=== PATIENT | female | born 1960 | race Caucasian/White ===

== ENCOUNTER → 2016-07-12 | Outpatient (CLI) | payer OTHER | LOC: RAD 14:08 | PROVIDERS: ATTEND Family Medicine | DX: G44.59 Other complicated headache syndrome (principal); D37.030 Neoplasm of uncertain behavior of the parotid salivary glands | CPT/HCPCS: 70470; 70491 ==

== ENCOUNTER 2017-02-24 11:03 | Emergency (ER) | payer OTHER ==
--- NOTE | 2017-02-24 12:07 | ER Document Report ---
ED General - General Chief Complaint: Overdose Stated Complaint: POSSIBLE OVERDOSE Time Seen by Provider: 02/24/17 11:22 Mode of Arrival: Ambulatory Information source: Patient Notes: 56-year-old female presents with complaints of self-harm gesture. Patient states she took at least 5 300 mg gabapentin's this morning. She denies any symptoms at this time however. pt states she wants away out of this life. Significant other has been with her for 14 years denies any history of depression or suicidal ideation the patient herself refuses to answer this question TRAVEL OUTSIDE OF THE [place] IN LAST 30 DAYS: No - HPI Onset: Just prior to arrival Onset/Duration: Sudden Quality of pain: No pain Severity: Mild Pain Level: Denies Associated symptoms: None Exacerbated by: Denies Relieved by: Denies Similar symptoms previously: No Recently seen / treated by doctor: No - Related Data Allergies/Adverse Reactions: codeine [Codeine] Allergy (Verified 02/24/17 11:53) ibuprofen [From Motrin] Allergy (Verified 02/24/17 11:53) Past Medical History - Social History Smoking Status: Current Every Day Smoker Cigarette use (# per day): Yes Chew tobacco use (# tins/day): No Smoking Education Provided: No Family History: None Patient has suicidal ideation: No - Unclear, patient states no one pays her attention - Past Medical History Cardiac Medical History: Denies: Hx Heart Attack, Hx Hypertension Pulmonary Medical History: Denies: Hx Asthma Neurological Medical History: Denies: Hx Cerebrovascular Accident, Hx Seizures Endocrine Medical History: Reports: Hx Hypothyroidism Renal/ Medical History: Denies: Hx Kidney Stones, Hx Ovarian Cysts, Hx Pelvic Inflammatory Disease GI Medical History: Denies: Hx Hepatitis, Hx Hiatal Hernia, Hx Ulcer Musculoskeltal Medical History: Reports Hx Arthritis - low back Infectious Medical History: Denies: Hx Hepatitis Past Surgical History: Reports: Hx Orthopedic Surgery, Hx Tubal Ligation. Denies: Hx Mastectomy, Hx Open Heart Surgery, Hx Pacemaker - Immunizations Hx Diphtheria, Pertussis, Tetanus Vaccination: Yes Review of Systems - Review of Systems Notes: REVIEW OF SYSTEMS: CONSTITUTIONAL : Denies fever, chills, or sweats. Denies recent illness. EENT: Denies eye, ear, throat, or mouth pain or symptoms. Denies nasal or sinus congestion or discharge. Denies throat, tongue, or mouth swelling or difficulty swallowing. CARDIOVASCULAR: Denies chest pain. Denies palpitations or racing or irregular heart beat. Denies ankle edema. RESPIRATORY: Denies cough, cold, or chest congestion. Denies shortness of breath, difficulty breathing, or wheezing. GASTROINTESTINAL: Denies abdominal pain or distention. Denies nausea, vomiting , or diarrhea. Denies blood in vomitus, stools, or per rectum. Denies black, tarry stools. Denies constipation. GENITOURINARY: Denies difficulty urinating, painful urination, burning, frequency, blood in urine, or discharge. FEMALE GENITOURINARY: Denies vaginal bleeding, heavy or abnormal periods, irregular periods. Denies vaginal discharge or odor. MUSCULOSKELETAL: Denies back or neck pain or stiffness. Denies joint pain or swelling. SKIN: Denies rash, lesions or sores. HEMATOLOGIC : Denies easy bruising or bleeding. LYMPHATIC: Denies swollen, enlarged glands. NEUROLOGICAL: Denies confusion or altered mental status. Denies passing out or loss of consciousness. Denies dizziness or lightheadedness. Denies headache. Denies weakness or paralysis or loss of use of either side. Denies problems with gait or speech. Denies sensory loss, numbness, or tingling. Denies seizures. PSYCHIATRIC: Refuses to admit to depression or suicidal ideations ALL OTHER SYSTEMS REVIEWED AND NEGATIVE. PHYSICAL EXAMINATION: GENERAL: Well-appearing, well-nourished and in no acute distress. HEAD: Atraumatic, normocephalic. EYES: Pupils equal round and reactive to light, extraocular movements intact, conjunctiva are normal. ENT: Nares patent, oropharynx clear without exudates. Moist mucous membranes. NECK: Normal range of motion, supple without lymphadenopathy LUNGS: Breath sounds clear to auscultation bilaterally and equal. No wheezes rales or rhonchi. HEART: Regular rate and rhythm without murmurs ABDOMEN: Soft, nontender, nondistended abdomen. No guarding, no rebound. No masses appreciated. Female : deferred Musculoskeletal: Normal range of motion, no pitting or edema. No cyanosis. NEUROLOGICAL: Cranial nerves grossly intact. Normal speech, normal gait. Normal sensory, motor exams PSYCH: Flat affect SKIN: Warm, Dry, normal turgor, no rashes or lesions noted. Dictation was performed using [employer] recognition software Physical Exam - Vital signs Vitals: Temp Pulse Resp BP Pulse Ox 97.5 F 66 16 151/78 H 97 02/24/17 11:05 02/24/17 11:05 02/24/17 11:05 02/24/17 11:05 02/24/17 11:05 Course - Re-evaluation Re-evalutation: 02/24/17 15:36 Patient is noted to have alcohol cocaine in her system, she has been watched and evaluated by mental health, they suggest to keep patient overnight and I will do some do not expect any medical complications from the medication she took as this is not a toxic dose - Vital Signs Vital signs: Temp Pulse Resp BP Pulse Ox 97.9 F 67 16 119/71 96 02/24/17 15:27 02/24/17 15:27 02/24/17 15:27 02/24/17 15:27 02/24/17 15:27 - Laboratory Result Diagrams: 02/24/17 12:40 02/24/17 12:40 Laboratory results interpreted by me: 02/24/17 02/24/17 12:40 13:38 Sodium 149.1 H Chloride 111 H AST 39 H Urine Ketones TRACE H Urine Blood SMALL H Ur Leukocyte Esterase SMALL H Salicylates < 1.0 L Acetaminophen < 10 L - EKG Interpretation by Me EKG shows normal: Sinus rhythm, [place], Intervals, QRS Complexes Discharge - Discharge Clinical Impression: Suicidal ideation Condition: Stable Disposition: PSYCH HOSP/UNIT
[2017-02-24 12:55] LABS: ABSOLUTE EOSINOPHILS # (AUTO) 0.1 10^3/uL (0.0-0.6); ABSOLUTE MONOCYTES (AUTO) 0.5 10^3/uL (0.1-1.4); ABSOLUTE NEUT (AUTO) 3.8 10^3/uL (1.7-8.2); BASOPHILS % (AUTO) 0.7 % (0-2); EOSINOPHILS % (AUTO) 1.3 % (0-6); HEMATOCRIT 42.6 % (36.0-47.0); HEMOGLOBIN 14.6 g/dL (12.0-15.5); HGB HCT DIFFERENCE 1.2; LYMPHOCYTES % (AUTO) 31.1 % (13-45); MEAN CORPUSCULAR HEMOGLOBIN 32.2 pg (27.0-33.4); MEAN CORPUSCULAR HGB CONC 34.4 g/dL (32.0-36.0); MEAN CORPUSCULAR VOLUME 94 fl (80-97); MONOCYTES % (AUTO) 7.3 % (3-13); RED BLOOD COUNT 4.55 10^6/uL (3.72-5.28); RED CELL DISTRIBUTION WIDTH 13.7 % (11.5-14.0); SEGMENTED NEUTROPHILS % (AUTO) 59.6 % (42-78); WHITE BLOOD COUNT 6.4 10^3/uL (4.0-10.5)
[2017-02-24 13:14] LABS: ALANINE AMINOTRANSFERASE 50 U/L (9-52); ALBUMIN 4.8 g/dL (3.5-5.0); ALCOHOL 116 mg/dL (NONE DETECTED); ALKALINE PHOSPHATASE 74 U/L (38-126); ANION GAP 13 (5-19); ASPARTATE AMINO TRANSFERASE 39 U/L (14-36); BILIRUBIN,DIRECT 0.3 mg/dL (0.0-0.4); BILIRUBIN,TOTAL 0.4 mg/dL (0.2-1.3); BLOOD UREA NITROGEN 10 mg/dL (7-20); CALCIUM 9.7 mg/dL (8.4-10.2); CARBON DIOXIDE 25 mmol/L (22-30); CHLORIDE 111 mmol/L (98-107); CREATININE RESULT 0.71 mg/dL (0.52-1.25); GLUCOSE 75 mg/dL (75-110); SODIUM 149.1 mmol/L (137-145); TOTAL PROTEIN 7.6 g/dL (6.3-8.2)
[2017-02-24 13:30] LABS: FREE T3 3.81 pg/mL (2.77-5.27)
[2017-02-24 14:05] LABS: APPEARANCE,URINE CLEAR; BILIRUBIN,URINE NEGATIVE (NEGATIVE); GLUCOSE, URINE NEGATIVE (NEGATIVE); KETONES,URINE TRACE mg/dL (NEGATIVE); LEUKOCYTE ESTERASE,URINE SMALL (NEGATIVE); NITRITE,URINE NEGATIVE (NEGATIVE); PROTEIN,URINE NEGATIVE (NEGATIVE); URINE SPECIFIC GRAVITY 1.004; UROBILINOGEN,URINE NEGATIVE mg/dL (<2.0)
[2017-02-24 14:20] LABS: URINE BARBITURATES SCREEN NEGATIVE; URINE METHADONE SCREEN NEGATIVE; URINE OPIATES LOW NEGATIVE; URINE PHENCYCLIDINE SCREEN NEGATIVE
--- NOTE | 2017-02-24 16:31 | EKG REPORT ---
SEVERITY:- NORMAL ECG - SINUS RHYTHM : Confirmed by: Bhavya Ga 24-Feb-2017 16:30:03
[2017-02-24] MEDS: CELECOXIB 100 MG CAPSULE PO SCH (22:00)
[2017-02-24] MEDS ORDERED: ROPINIROLE HCL 1 MG TABLET PO SCH (22:00)
[2017-02-25] MEDS ORDERED: ROPINIROLE HCL 1 MG TABLET ONE (00:32)
--- NOTE | 2017-02-25 04:57 | ER Document Report ---
ED Psych Disorder / Suicide - General Mode of Arrival: Ambulatory TRAVEL OUTSIDE OF THE [place] IN LAST 30 DAYS: No <FERREIRAJOSE SHIRLEY - Last Filed: 02/25/17 04:49> - HPI Normal mood: Yes Associated symptoms: Normal affect, Normal mood, Irritable Similar symptoms previously: Yes Recently seen / treated by doctor: No <LUZ JACOBSON - Last Filed: 02/25/17 08:16> - General Chief Complaint: Overdose Stated Complaint: POSSIBLE OVERDOSE Time Seen by Provider: 02/24/17 11:22 - HPI Notes: 56-year-old female presents with complaints of self-harm gesture. Patient states she took at least 5 300 mg gabapentin's this morning. She denies any symptoms at this time however. pt states she wants away out of this life. Significant other has been with her for 14 years denies any history of depression or suicidal ideation the patient herself refuses to answer this question. Patient refused to remove her head from underneath the pillow and blanket. Patient states she has a migraine. Patient was able to identify that she arrived by EMS and disclose that she did not know who called them. She disclosed is at [facility] because "I am stupid." Patient was unwilling to expound upon that; however, did state "I wanted to just go to sleep and not wake up." Patient states that she does not know how many pills she took or if she took more than one type of pill. When asked if she opened more than one bottle she stated "I do not know." When asked why the wanted to go to sleep and not wake up, she stated because "the same old same old." Patient continued to disclose that she was tired of hurting. Patient disclosed that she has arthritis throughout her body and bone spurs in her hands. She continued to report her boyfriend of 14 years "left today;" at this point patient can be heard crying underneath the pillow and blanket. Patient stated "he lost his job and I am tired of being the only one working, he does not even try to find a job." She told him this and reports he left, she is unsure if he will return. Patient states "I work so hard... I work my fingers to the bone.... Nobody cares.... It does not matter... My family does not care... my kids do not care.. my boyfriend does not care." Clinician notes at this point of evaluation a gentleman came into the patient's room. He identifies himself as Bart the patient's significant other. Clinician was told by [facility] staff the patient's significant other arrived with the patient and only briefly left to secure the patient's belongings. Patient is currently under the influence of alcohol and disclosed her last use of cocaine was "last night." Clinician attempted to re-evaluate once legally sober ; however, was unable to engage patient. Patient is still under the pillow and blanket crying. At this time, the patient will have to be evaluated at a later time. (JOSE FERREIRA) Conducted check in with patient who is a 56 year old female who presented with alleged overdose. Patient was noted to be positive for cocaine and alcohol and was held due to SI and depression. Patient this morning denies these symptoms. Patient acknowledges that she has a headache and states she "always does." Patient denies wanting to by suicide. Patient states she is willing to follow up with a provider. Discussed with patient [facility], to address her likely co morbid SA and underlying depression. Patient states she has a strict work schedule and cannot miss work to attend multiple group meetings. Discussed alternative providers, such as [facility]. Patient's significant other, Bart is bedside and states he feels he can keep her safe at home, and reports he is not concerned re: SI. Significant other states he will secure all medications in the home in a locked box and restrict patient's access. Patient is A&O. Mood is irritable with normal affect. Patient denies SI/HI. Patient denies A.V H. Delusions not noted. Thought processes were organized. Conversational speech was within normal limits for rate, tone, and prosody. Intellectual abilities were estimated within average range. Attention and focus were fair. Insight, judgment, and impulse control were poor to fair. Unspecified Cocaine Use Disorder R/O Major Depressive Disorder Patient is psychiatrically cleared for discharge. Patient is recommended to follow up with [facility] for assessment and ongoing services. Patient denies SI/HI and therefor does not meet criteria for IVC per the [id number]. Patient's significant other of 14 years is bedside and states he is not concerned in regards to SI, will secure all medications in a lock box, and assist patient in following up with a provider. I consulted with Dr. Briceno in regards to the care and management of this patient. (LUZ JACOBSON) - Related Data Allergies/Adverse Reactions: codeine [Codeine] Allergy (Verified 02/24/17 11:53) ibuprofen [From Motrin] Allergy (Verified 02/24/17 11:53) Home Medications: Current Home Medications Celecoxib [Celecoxib] 100 mg PO BID 02/24/17 [History] Meloxicam 7.5 mg PO DAILY 02/24/17 [History] Ropinirole HCl 1 mg PO QHS 02/24/17 [History] Topiramate [Trokendi Xr] 50 mg PO DAILY 02/24/17 [History] Past Medical History - General Information source: Patient - Social History Smoking Status: Current Every Day Smoker Cigarette use (# per day): Yes Chew tobacco use (# tins/day): No Frequency of alcohol use: Heavy Drug Abuse: None Family History: None Patient has suicidal ideation: No - Unclear, patient states no one pays her attention - Past Medical History Cardiac Medical History: Denies: Hx Heart Attack, Hx Hypertension Pulmonary Medical History: Denies: Hx Asthma Neurological Medical History: Denies: Hx Cerebrovascular Accident, Hx Seizures Endocrine Medical History: Reports: Hx Hypothyroidism Renal/ Medical History: Denies: Hx Kidney Stones, Hx Ovarian Cysts, Hx Pelvic Inflammatory Disease GI Medical History: Denies: Hx Hepatitis, Hx Hiatal Hernia, Hx Ulcer Musculoskeltal Medical History: Reports Hx Arthritis - low back Infectious Medical History: Denies: Hx Hepatitis Past Surgical History: Reports: Hx Orthopedic Surgery, Hx Tubal Ligation. Denies: Hx Mastectomy, Hx Open Heart Surgery, Hx Pacemaker - Immunizations Hx Diphtheria, Pertussis, Tetanus Vaccination: Yes <JOSE FERREIRA - Last Filed: 02/25/17 04:49> - General Information source: Friend - significant other, Bart is bedside, [facility] - Social History Patient has suicidal ideation: No - Unclear, patient states no one pays her attention; 02/25 patient denies Patient has homicidal ideation: No <LUZ JACOBSON - Last Filed: 02/25/17 08:16> - Vital signs Vitals: Temp Pulse Resp BP Pulse Ox 97.5 F 66 16 151/78 H 97 02/24/17 11:05 02/24/17 11:05 02/24/17 11:05 02/24/17 11:05 02/24/17 11:05 Course - Laboratory Result Diagrams: 02/24/17 12:40 02/24/17 12:40 <JOSE FERREIRA - Last Filed: 02/25/17 04:49> - Laboratory Result Diagrams: 02/24/17 12:40 02/24/17 12:40 <LUZ JACOBSON - Last Filed: 02/25/17 08:16> - Vital Signs Vital signs: Temp Pulse Resp BP Pulse Ox 98.1 F 71 18 139/76 H 98 02/25/17 05:15 02/25/17 05:15 02/25/17 05:15 02/25/17 05:15 02/25/17 05:15 - Laboratory Laboratory results interpreted by me: 02/24/17 02/24/17 12:40 13:38 Sodium 149.1 H Chloride 111 H AST 39 H Urine Ketones TRACE H Urine Blood SMALL H Ur Leukocyte Esterase SMALL H Salicylates < 1.0 L Acetaminophen < 10 L Discharge <JOSE FERREIRA - Last Filed: 02/25/17 04:49> <LUZ JACOBSON - Last Filed: 02/25/17 08:16> - Discharge Clinical Impression: Suicidal ideation Condition: Stable Disposition: HOME, SELF-CARE Additional Instructions: Cocaine Abuse Cocaine causes many dangerous medical problems. Problems can occur even with "usual" amounts. Cocaine affects judgement, creating a sense of invulnerability. Cocaine users often make bad decisions that seem "great" at the time. Most cocaine users eventually will be hurt by bad job performance, damaged personal relations, crime, and unsafe sexual practices. Toxic effects of cocaine can include seizures, hallucinations, delusions, high blood pressure, heart damage, or sudden . There's always the risk of a "bad batch." But heart attacks, brain hemorrhages, or cardiac arrest can occur unpredictably even with "normal" use. Injection of cocaine is risky for abscesses, endocarditis (heart infection) , pneumonia, and AIDS. Withdrawal from cocaine often causes anxiety and drug cravings. Some users become paranoid and psychotic. Many treatment programs are available, but you must make the decision to quit. Medication can be prescribed to control the symptoms of cocaine toxicity (beta blockers or benzodiazepines). Withdrawal symptoms may require tranquilizers. Depression Your evaluation reveals that you have mental depression. While symptoms may be vague, they often include disturbance of sleep, fatigue, loss of appetite , and general loss of interest in life. While depression may be a side effect of drugs, or a reaction to a major change in your life, many cases have no known cause. If depression is acute, and related to a major loss in your life, you can expect it to clear completely with time. If you have been depressed a long time , are prone to repeated bouts of depression or low mood, or have been thinking of suicide, get help. Depression can be treated with anti-depressant medication and counselling. Long-term depression will often take a few weeks to clear, even with appropriate medication. Follow-up care is important. Contact your physician, the hospital emergency center, crisis line, or your counsellor if you are losing control or having self-destructive thoughts. Please stop doing drugs. Please follow up with [facility] for assessment for outpatient services. Please return if your symptoms worsen. You have been provided a list of resources to assist you in following up. Forms: Parent Work Note Referrals: [facility] [Provider Group] - Follow up as needed [facility] [Provider Group] - Follow up as needed [facility] [Provider Group] - 02/26/17 (Please call and schedule your assessment)
[2017-02-25] MEDS: CELECOXIB 100 MG CAPSULE PO SCH (09:25)
[2017-02-25 10:00] VITALS: BP 115/72
[2017-02-25] MEDS ORDERED: MELOXICAM 7.5 MG TABLET PO SCH (10:00)
[2017-02-25] MEDS ORDERED: (PENDING PHARMACY ID) (Topiramate [Trokendi Xr] 50 MG) PO SCH (10:00)
== END 2017-02-25 09:40 | disposition home or self-care (01) ==
LOC: ER 11:03
DX: T42.6X2A Poisoning by other antiepileptic and sedative-hypnotic drugs, intentional self-harm, initial encounter (principal); F17.210 Nicotine dependence, cigarettes, uncomplicated; Z79.899 Other long term (current) drug therapy
CPT/HCPCS: 36415; 80053; 80307; 81001; 84439; 84443; 84481; 85025; 93005; 93010; 99284

== ENCOUNTER → 2017-05-16 | Outpatient (CLI) | payer OTHER ==
--- NOTE | 2017-05-16 12:13 | RADIOLOGY REPORT (SQ) ---
EXAM DESCRIPTION: MRI CERVICAL SPINE WITHOUT COMPLETED DATE/TIME: 05/16/2017 9:51 am REASON FOR STUDY: M54.12 RADICULOPATHY, CERVICAL REGION M54.12 RADICULOPATHY, CERVICAL REGION COMPARISON: None. TECHNIQUE: Sagittal and Axial imaging includes T1, T2, STIR and gradient echo sequences. LIMITATIONS: Motion. FINDINGS: ALIGNMENT: Reversal of lordotic curve in the lower cervical spine. Grade 1 anterolisthesi s C4 relative to C5. VERTEBRAE: Intact. BONE MARROW: Reactive edema C5-6 endplates. DISCS: Desiccation multiple levels. HARDWARE: None in the spine. CORD AND BASE OF BRAIN: Normal in size and signal intensity. SOFT TISSUES: No soft tissue masses. C1-C2: No significant spinal stenosis. C2-C3: No significant spinal stenosis or exit foraminal stenosis. C3-C4: Moderate left and mild right neural foraminal narrowing due to uncovertebral arthropathy and d isc bulge. C4-C5: Mild spinal stenosis due to disc osteophyte complex. Moderate left and mild right neural fora ramu narrowing. C5-C6: Moderate spinal stenosis. Severe neural foraminal narrowing bilaterally. C6-C7: Moderate spinal stenosis moderate right and severe left neural foraminal narrowing. C7-T1: Mild spinal stenosis. Moderate left and mild right neural foraminal narrowing. UPPER THORACIC: Incompletely imaged. No significant spinal stenosis or exit foraminal stenosis. OTHER: No other significant finding. IMPRESSION: Moderate spinal stenosis C5- 6 and C6- 7. Neural foraminal stenosis. TECHNICAL DOCUMENTATION: JOB ID: [id number] [email or web address]- All Rights Reserved
== END ==
LOC: RAD 09:14
PROVIDERS: ATTEND Orthopaedic Surgery Hand Surgery
DX: M54.12 Radiculopathy, cervical region (principal); M54.2 Cervicalgia; M48.02 Spinal stenosis, cervical region
CPT/HCPCS: 72141

== ENCOUNTER 2017-09-21 05:58 | Emergency (ER) | payer OTHER ==
--- NOTE | 2017-09-21 06:54 | RADIOLOGY REPORT (SQ) ---
EXAM DESCRIPTION: ANKLE RIGHT COMPLETE CLINICAL HISTORY: 57 years Female, injury COMPARISON: None. Findings: Minimal osteoarthritis. Bones, joints, and soft tissues of the ANKLE RIGHT COMPLETE appear otherwise intact. IMPRESSION: No acute findings.
[2017-09-21] MEDS ORDERED: HYDROCODONE/ACETAMINOPHEN 10-325 MG TABLET PO ONE (07:16)
--- NOTE | 2017-09-21 07:24 | ER Document Report ---
ED Extremity Problem, Lower - General Chief Complaint: Ankle Injury Stated Complaint: FALL,ANKLE PAIN Time Seen by Provider: 09/21/17 06:47 Notes: History of complain-57 years old female earlier this morning when coming down the stairs twisted her right ankle since then having pain over the lateral side of the ankle. Unable to bear weight as well as do any movements. No other injuries. REVIEW OF SYSTEMS: CONSTITUTIONAL : Denies fever, chills, or sweats. Denies recent illness. EENT: Denies eye, ear, throat, or mouth pain or symptoms. Denies nasal or sinus congestion or discharge. Denies throat, tongue, or mouth swelling or difficulty swallowing. CARDIOVASCULAR: Denies chest pain. Denies palpitations or racing or irregular heart beat. Denies ankle edema. RESPIRATORY: Denies cough, cold, or chest congestion. Denies shortness of breath, difficulty breathing, or wheezing. GASTROINTESTINAL: Denies abdominal pain or distention. Denies nausea, vomiting , or diarrhea. Denies blood in vomitus, stools, or per rectum. Denies black, tarry stools. Denies constipation. GENITOURINARY: Denies difficulty urinating, painful urination, burning, frequency, blood in urine, or discharge. MUSCULOSKELETAL: Denies back or neck pain or stiffness. Denies joint pain or swelling. SKIN: Denies rash, lesions or sores. HEMATOLOGIC : Denies easy bruising or bleeding. LYMPHATIC: Denies swollen, enlarged glands. NEUROLOGICAL: Denies confusion or altered mental status. Denies passing out or loss of consciousness. Denies dizziness or lightheadedness. Denies headache. Denies weakness or paralysis or loss of use of either side. Denies problems with gait or speech. Denies sensory loss, numbness, or tingling. Denies seizures. PSYCHIATRIC: Denies anxiety or stress. Denies depression, suicidal ideation, or homicidal ideation. ALL OTHER SYSTEMS REVIEWED AND NEGATIVE. Dictation was performed using [employer] voice recognition software PHYSICAL EXAMINATION: GENERAL: Well-appearing, well-nourished and in no acute distress. HEAD: Atraumatic, normocephalic. EYES: Pupils equal round and reactive to light, extraocular movements intact, sclera anicteric, conjunctiva are normal. ENT: Nares patent, oropharynx clear without exudates. Moist mucous membranes. NECK: Normal range of motion, supple without lymphadenopathy LUNGS: Breath sounds clear to auscultation bilaterally and equal. No wheezes rales or rhonchi. HEART: Regular rate and rhythm without murmurs ABDOMEN: Soft, nontender, nondistended abdomen. No guarding, no rebound. No masses appreciated. Musculoskeletal: Examination of the right ankle shows lateral malleolus swelling tenderness on palpation. She could not do any plantar flexion does dorsiflexion due to pain. Neurovascular function distally within normal limit. NEUROLOGICAL: Cranial nerves grossly intact. Normal speech, normal gait. Normal sensory, motor exams PSYCH: Normal mood, normal affect. SKIN: Warm, Dry, normal turgor, no rashes or lesions noted. TRAVEL OUTSIDE OF THE [place] IN LAST 30 DAYS: No - HPI Patient complains to provider of: Injury, Pain, Swelling Location: Ankle Occurred: Just prior to arrival Where: Home Onset/Duration: Sudden Quality of pain: Achy Severity: Moderate Pain Level: 3 Context: Twisted. denies: Barefoot, Burn, Crush, Direct blow, Fell, Laceration , Prolonged pressure on ext, Recent immobilization, Recent surgery, Recent travel, Stubbed, Wearing shoes, Other Recent injury: Yes Associated symptoms: denies: Chest pain, Chills, Dizzy, Fainting, Fever, Dickey a crack, Dickey a pop, Hurts to breath, Painful ambulation, Rapid heart rate, Seizure, Short of breath, Sweaty, Unable to bear weight, Weak, Other Exacerbated by: Movement, Walking Relieved by: Rest - Related Data Allergies/Adverse Reactions: codeine [Codeine] Allergy (Verified 02/24/17 11:53) ibuprofen [From Motrin] Allergy (Verified 02/24/17 11:53) Past Medical History - General Information source: Patient - Social History Smoking Status: Never Smoker Chew tobacco use (# tins/day): No Frequency of alcohol use: None Drug Abuse: None Family History: None Patient has suicidal ideation: No Patient has homicidal ideation: No - Past Medical History Cardiac Medical History: Denies: Hx Heart Attack, Hx Hypertension Pulmonary Medical History: Denies: Hx Asthma Neurological Medical History: Denies: Hx Cerebrovascular Accident, Hx Seizures Endocrine Medical History: Reports: Hx Hypothyroidism Renal/ Medical History: Denies: Hx Kidney Stones, Hx Ovarian Cysts, Hx Peritoneal Dialysis, Hx Pelvic Inflammatory Disease GI Medical History: Denies: Hx Hepatitis, Hx Hiatal Hernia, Hx Ulcer Musculoskeltal Medical History: Reports Hx Arthritis - low back Infectious Medical History: Denies: Hx Hepatitis Past Surgical History: Reports: Hx Orthopedic Surgery, Hx Tubal Ligation. Denies: Hx Mastectomy, Hx Open Heart Surgery, Hx Pacemaker - Immunizations Hx Diphtheria, Pertussis, Tetanus Vaccination: Yes Review of Systems - Review of Systems Constitutional: denies: No symptoms reported, See HPI, Chills, Diaphoresis, Fever, Malaise, Weakness, Other, Weight gain, Weight loss, Recent illness EENT: denies: No symptoms reported, See HPI, Eye pain, Eye discharge, Blurred vision, Tearing, Double vision, Ear pain, Ear discharge, Nose pain, Nose congestion, Nose discharge, Sinus pressure, Sinus discharge, Throat pain, Difficulty swallowing, Throat swelling, Mouth pain, Mouth swelling, Dental problem, Vertigo, Other Cardiovascular: denies: No symptoms reported, See HPI, Chest pain, Palpitations , Heart racing, Orthopnea, Dyspnea, Syncope, Dizziness, Lightheaded, Edema, Other, Paroxysmal Nocturnal Dysp Respiratory: denies: No symptoms reported, See HPI, Cough, Hurts to breathe, Hemoptysis, Short of breath, Sputum, Stridor, Wheezing, Other Gastrointestinal: denies: No symptoms reported, See HPI, Abdomen distended, Abdominal pain, Diarrhea, Nausea, Vomiting, Constipation, Blood streaked bowels , Poor appetite, Poor fluid intake, Blood in vomit, Black stools, Rectal bleeding, Last bowel movement, Fecal incontinence, Other Genitourinary: denies: No symptoms reported, See HPI, Burning, Dysuria, Discharge, Frequency, Flank pain, Hematuria, Incontinence, Pain, Urgency, Retention, Other Female Genitourinary: denies: No symptoms reported, See HPI, Last menstrual period, , Post menopausal, Heavy/abnormal periods, Irregular period, Vaginal bleeding, Vaginal discharge, Vaginal odor, Painful intercourse, Other Musculoskeletal: See HPI Neurological/Psychological: denies: No symptoms reported, See HPI, Confusion, Dementia, Depression, Hallucinations, Anxiety, Homicidal ideation, Sensory change, Weakness, Gait changes, Loss of power, Paralysis, Seizure, Lost consciousness, Headaches, Speech impairment, Numbness, Suicidal ideation, Tingling, Tremor, Other Physical Exam - Vital signs Vitals: Temp Pulse Resp BP Pulse Ox 98.5 F 111 H 18 137/67 H 97 09/21/17 06:04 09/21/17 06:04 09/21/17 06:04 09/21/17 06:04 09/21/17 06:04 - General General appearance: Appears well, Alert - HEENT Head: Normocephalic, Atraumatic Eyes: Normal Pupils: PERRL - Respiratory Respiratory status: No respiratory distress Chest status: Nontender Breath sounds: Normal Chest palpation: Normal - Cardiovascular Rhythm: Regular Heart sounds: Normal auscultation Murmur: No - Abdominal Inspection: Normal Distension: No distension Bowel sounds: Normal Tenderness: Nontender Organomegaly: No organomegaly - Back Back: Normal, Nontender - Extremities General upper extremity: Tender - Tenderness tenderness over the right lateral malleolus of the ankle range of motion is limited due to pain and injury - Neurological Neuro grossly intact: Yes Cognition: Normal Orientation: AAOx4 Deng Coma Scale Eye Opening: Spontaneous Deng Coma Scale Verbal: Oriented Deng Coma Scale Motor: Obeys Commands Deng Coma Scale Total: 15 Speech: Normal Motor strength normal: LUE, RUE, LLE, RLE Sensory: Normal Course - Re-evaluation Re-evalutation: 09/21/17 07:23 Given Vicodin 09/21/17 07:23 Ankle was splinted with ankle strips - Vital Signs Vital signs: Temp Pulse Resp BP Pulse Ox 98.5 F 111 H 18 137/67 H 97 09/21/17 06:04 09/21/17 06:04 09/21/17 06:04 09/21/17 06:04 09/21/17 06:04 - Diagnostic Test Radiology reviewed: Reports reviewed - X-ray of the ankle reported by radiologist as no fractures Discharge - Discharge Clinical Impression: Contusion of right ankle Qualifiers: Encounter type: initial encounter Qualified Code(s): S90.01XA - Contusion of right ankle, initial encounter Condition: Fair Disposition: HOME, SELF-CARE Instructions: Use of Crutches ([facility]), Ankle Stirrup Splint ([facility]) Prescriptions: Hydrocodone/Acetaminophen [Vicodin 5-300 mg Tablet] 1 tab PO Q6HP PRN #14 tab PRN Reason:
[2017-09-21 07:38] VITALS: BP 130/77
== END 2017-09-21 07:38 | disposition home or self-care (01) ==
LOC: ER 05:58
DX: S90.01XA Contusion of right ankle, initial encounter (principal); X50.0XXA Overexertion from strenuous movement or load, initial encounter; Y92.008 Other place in unspecified non-institutional (private) residence as the place of occurrence of the external cause
CPT/HCPCS: 99283; 73610; L1902

== ENCOUNTER → 2018-10-25 | Outpatient (CLI) | payer OTHER ==
--- NOTE | 2018-10-25 10:50 | RADIOLOGY REPORT (SQ) ---
EXAM DESCRIPTION: MRA HEAD WITHOUT COMPLETED DATE/TIME: 10/25/2018 9:04 am REASON FOR STUDY: NEW DAILY PERSISTENT HEADACHE ([facility]) G44.52 NEW DAILY PERSISTENT HEADACHE ([facility]) COMPARISON: None. TECHNIQUE: Axial 3-D [id number] acquisition imaging performed through the brain in the area of t he [place] of [place]. Images reformatted using 3-D MIPS. LIMITATIONS: None. FINDINGS: SOURCE IMAGES: No unexpected findings on source images. No large masses. 3-D MIP: No aneurysm. No occlusions. No significant stenosis. OTHER: No other significant finding. IMPRESSION: NORMAL MRA OF THE [place] OF [place]. TECHNICAL DOCUMENTATION: JOB ID: [id number] [employer]- All Rights Reserved Reading location - IP/workstation name: [email or web address]
== END ==
LOC: RAD 08:38
PROVIDERS: ATTEND Family Medicine
DX: G44.52 New daily persistent headache (NDPH) (principal)
CPT/HCPCS: 70544

== ENCOUNTER → 2019-05-12 | Outpatient (CLI) | payer OTHER ==
--- NOTE | 2019-05-12 16:09 | RADIOLOGY REPORT (SQ) ---
EXAM DESCRIPTION: BARIUM SWALLOW ESOPHAGUS COMPLETED DATE/TIME: 05/12/2019 8:57 am REASON FOR STUDY: DIAPHRAGMATIC HERNIA W/O OBSTRUCTION OR GANGRENE (K44.9) K44.9 DIAPHRAGMATIC [place] IA WITHOUT OBSTRUCTION OR GANGRENE COMPARISON: None. TECHNIQUE: Under fluoroscopic guidance, patient ingested effervescent granules followed by thick and thin barium. Fluoroscopic spot images and routine radiographic images acquired and stored on PACS. 12 MM BARIUM TABLET GIVEN: Barium tablet passed easily through the esophagus and into the stomach wit hout delay. LIMITATIONS: None. FLUOROSCOPY TIME: FLUORO TIME: 1.4 minutes 14 images saved to PACS. FINDINGS: NEUROMUSCULAR COORDINATION OF SWALLOW: Normal. No aspiration. ESOPHAGEAL MOTILITY: Normal peristalsis. Tertiary contractions in the distal esophagus. ESOPHAGEAL MUCOSA: Normal mucosa without masses or ulceration. GASTRO-ESOPHAGEAL JUNCTION: Large hiatal hernia involving the entire fundus of the stomach. Moderate gastroesophageal reflux. NON-GI TRACT STRUCTURES: No significant finding. OTHER: No other significant finding. IMPRESSION: LARGE HIATAL HERNIA INVOLVING ENTIRE FUNDUS OF STOMACH. MODERATE GASTROESOPHAGEAL REFLU X. RECOMMENDATION: NONE COMMENT: None Quality ID [id number]: Final reports for procedures using fluoroscopy that document radiation exposure lizet anjelica, or exposure time and number of fluorographic images (if radiation exposure indices are not avail able) TECHNICAL DOCUMENTATION: JOB ID: [id number] [employer]- All Rights Reserved Reading location - IP/workstation name: [email or web address] [id number]
== END ==
LOC: RAD 08:09
PROVIDERS: ATTEND Surgery
DX: K44.9 Diaphragmatic hernia without obstruction or gangrene (principal)
CPT/HCPCS: 74220

== ENCOUNTER → 2019-05-27 | Outpatient (CLI) | payer OTHER ==
--- NOTE | 2019-05-28 15:51 | RADIOLOGY REPORT (SQ) ---
EXAM DESCRIPTION: MRI LUMBAR SPINE WITHOUT COMPLETED DATE/TIME: 05/27/2019 4:09 pm REASON FOR STUDY: M47.817 SPONDYLS W/O MYELOPATHY OR RADICULOPATHY, LUMBOSACR REGION M47.817 SPONDY LS W/O MYELOPATHY OR RADICULOPATHY, LUMBOSACR COMPARISON: 2013 TECHNIQUE: Sagittal and Axial imaging includes T1, T2, STIR and gradient echo sequences. Coronal T2/ HASTE imaging. LIMITATIONS: None. FINDINGS: VISUALIZED UPPER ABDOMEN: Limited evaluation. No acute or suspicious findings suggested. SEGMENTATION: No transitional anatomy. The lowest well-developed disc space is labeled L5-S1. ALIGNMENT: Very slight retrolisthesis at L2-3. VERTEBRAE: Intact. BONE MARROW: Mild endplate marrow edema posteriorly at the L2-3 level to the right of midline. Other gold, normal. DISC SIGNAL: Variable signal and height loss throughout. POSTERIOR ELEMENTS: No evidence of pars defect. Variable mild diffuse facet arthropathy without bul ky overgrowth. HARDWARE: None in the spine. CORD AND CONUS: Normal in size and signal intensity. Conus at the appropriate level. SOFT TISSUES: No aortic aneurysm seen. No bulky retroperitoneal adenopathy or mass. No paraspinal mas s or fluid. L1-L2: No significant spinal stenosis or exit foraminal stenosis. L2-L3: Broad mild disc bulge mildly flattens the ventral thecal sac. No overt nerve root impingement or significant central stenosis. Mild foraminal narrowing. L3-L4: Mild disc and facet disease without central or foraminal significant stenosis. Minimal right foraminal encroachment. L4-L5: Mild disc and facet disease with slight foraminal narrowing. No impingement. L5-S1: Mild disc and facet disease with up to moderate foraminal narrowing, particularly on the left. No high-grade stenosis or antoni impingement. LOWER THORACIC: Incompletely imaged. No stenosis seen. SACRUM: Visualized upper sacrum intact. OTHER: No other significant findings. IMPRESSION: 1. Lumbar spondylosis without evidence of high-grade stenosis. No antoni nerve root impingement. No fracture or worrisome bone lesion. TECHNICAL DOCUMENTATION: JOB ID: [id number] [employer]- All Rights Reserved Reading location - IP/workstation name: [email or web address]
== END ==
LOC: RAD 14:57
PROVIDERS: ATTEND Family Medicine
DX: M47.817 Spondylosis without myelopathy or radiculopathy, lumbosacral region (principal)
CPT/HCPCS: 72148

== ENCOUNTER → 2019-07-17 | Outpatient (CLI) | payer OTHER ==
--- NOTE | 2019-07-17 13:49 | RADIOLOGY REPORT (SQ) ---
EXAM DESCRIPTION: CHEST 2 VIEWS COMPLETED DATE/TIME: 07/17/2019 12:01 pm REASON FOR STUDY: R06.02 SHORTNESS OF BREATH COMPARISON: None. EXAM PARAMETERS: NUMBER OF VIEWS: two views TECHNIQUE: Digital Frontal and Lateral radiographic views of the chest acquired. RADIATION DOSE: NA LIMITATIONS: none FINDINGS: LUNGS AND PLEURA: No opacities, masses or pneumothorax. No pleural effusion. MEDIASTINUM AND HILAR STRUCTURES: No masses or contour abnormalities. HEART AND VASCULAR STRUCTURES: Heart normal size. No evidence for failure. BONES: No acute findings. HARDWARE: None in the chest. OTHER: Large hiatal hernia. IMPRESSION: NO ACUTE RADIOGRAPHIC FINDING IN THE CHEST. TECHNICAL DOCUMENTATION: JOB ID: [id number] 2010 [employer]- All Rights Reserved Reading location - IP/workstation name: [email or web address]
== END ==
LOC: RAD 11:12
PROVIDERS: ATTEND Family Medicine
DX: R06.02 Shortness of breath (principal)
CPT/HCPCS: 71046

== ENCOUNTER → 2019-07-23 | Outpatient (CLI) | payer OTHER ==
--- NOTE | 2019-07-23 15:48 | RADIOLOGY REPORT (SQ) ---
EXAM DESCRIPTION: CT ABDOMEN WITH IV ORAL CONT COMPLETED DATE/TIME: 07/23/2019 2:22 pm REASON FOR STUDY: K44.9 DIAPHRAGMATIC HERNIA WITHOUT OBSTRUCTION OR GANGRENE K44.9 DIAPHRAGMATIC HE RNIA WITHOUT OBSTRUCTION OR GANGRENE COMPARISON: Barium swallow dated 05/12/2019 TECHNIQUE: CT scan of the abdomen performed with intravenous and with oral contrast using helical sc anning technique with dynamic intravenous contrast injection. Images reviewed with lung, soft tissue, and bone windows. Reconstructed coronal and sagittal MPR images reviewed. Delayed images for evaluat ion of the urinary system also acquired and evaluated. All images stored on PACS. All CT scanners at this facility use dose modulation, iterative reconstruc tion, and/or weight based dosing when appropriate to reduce radiation dose to as low as reasonably ac hievable (ALARA). [facility]: Dose Right [facility]: CareDose [facility]: Dose Right [facility]: Teradose 4D [facility]: Ybrain CONTRAST TYPE AND DOSE: contrast/concentration: Isovue 350.00 mg/ml; Total Contrast Delivered: 85.0 ml; Total Saline Delivered: 66.0 ml RENAL FUNCTION: 0.9 RADIATION DOSE: CT Rad equipment meets quality standard of care and radiation dose reduction techniq ues were employed. CTDIvol: 7.9 - 8.0 mGy. DLP: 606 mGy-cm. . LIMITATIONS: None. FINDINGS: LOWER CHEST: There is a large sliding hiatal hernia. Majority of the stomach lies within the chest. This is well demonstrated on prior barium swallow. There is omental fat contained within the hernia as well. LIVER: There is fatty infiltration of the liver. No focal masses. SPLEEN: Normal size. No focal lesions. PANCREAS: No masses. No significant calcifications. No adjacent inflammation or peripancreatic fluid collections. Pancreatic duct not dilated. GALLBLADDER: No identified stones by CT criteria. No inflammatory changes to suggest cholecystitis. ADRENAL GLANDS: No significant masses or asymmetry. RIGHT KIDNEY AND URETER: No solid masses. No significant calcifications. No hydronephrosis or hyd roureter. LEFT KIDNEY AND URETER: No solid masses. No significant calcifications. No hydronephrosis or hydr oureter. AORTA AND VESSELS: No aneurysm. No dissection. Renal arteries, SMA, celiac without stenosis. RETROPERITONEUM: No retroperitoneal adenopathy, hemorrhage or masses. BOWEL AND PERITONEAL CAVITY: No masses or inflammatory changes. No free fluid or peritoneal masses. APPENDIX: Not visualized. ABDOMINAL WALL: No masses. No hernias. BONES: No significant or acute findings. OTHER: No other significant finding. IMPRESSION: Large sliding-type hiatal hernia as demonstrated on prior barium swallow. Fatty infiltrated liver. TECHNICAL DOCUMENTATION: JOB ID: [id number] Quality ID # [id number]: Final reports with documentation of one or more dose reduction techniques (e.g., Au tomated exposure control, adjustment of the mA and/or kV according to patient size, use of iterative reconstruction technique) 2010 [employer]- All Rights Reserved Reading location - IP/workstation name: [email or web address]
== END ==
LOC: RAD 13:29
PROVIDERS: ATTEND Family Medicine
DX: K44.9 Diaphragmatic hernia without obstruction or gangrene (principal); K76.0 Fatty (change of) liver, not elsewhere classified
CPT/HCPCS: 74160; 82565

== ENCOUNTER 2019-08-21 07:52 | Emergency (ER) | payer OTHER ==
[2019-08-21 09:04] LABS: ABSOLUTE BASOPHILS # (AUTO) 0.1 10^3/uL (0.0-0.2); ABSOLUTE EOSINOPHILS # (AUTO) 0.2 10^3/uL (0.0-0.6); ABSOLUTE LYMPHOCYTES (AUTO) 1.8 10^3/uL (0.5-4.7); ABSOLUTE MONOCYTES (AUTO) 0.6 10^3/uL (0.1-1.4); ABSOLUTE NEUT (AUTO) 5.5 10^3/uL (1.7-8.2); BASOPHILS % (AUTO) 0.7 % (0-2); HEMATOCRIT 41.4 % (36.0-47.0); HEMOGLOBIN 14.2 g/dL (12.0-15.5); LYMPHOCYTES % (AUTO) 22.5 % (13-45); MEAN CORPUSCULAR HGB CONC 34.3 g/dL (32.0-36.0); MEAN CORPUSCULAR VOLUME 90 fl (80-97); MONOCYTES % (AUTO) 7.2 % (3-13); RED BLOOD COUNT 4.57 10^6/uL (3.72-5.28); RED CELL DISTRIBUTION WIDTH 14.7 % (11.5-14.0); SEGMENTED NEUTROPHILS % (AUTO) 67.6 % (42-78); TOTAL CELLS COUNTED % (AUTO) 100 %; WHITE BLOOD COUNT 8.2 10^3/uL (4.0-10.5)
--- NOTE | 2019-08-21 09:16 | ER Document Report ---
Entered by ALDA GU SCRIBE 08/21/19 0847 Acting as scribe for:REBECCA WILLIS MD ED GI/ - General Chief Complaint: Nausea Stated Complaint: ABDOMINAL PAIN Time Seen by Provider: 08/21/19 08:25 Primary Care Provider: ABEL WHITESIDE MD [Primary Care Provider] - Follow up as needed Mode of Arrival: Ambulatory Information source: Patient Notes: This 59 year old female patient presents to the emergency department today with complaints of abdominal pain with nausea and one episode of vomiting. Patient had a hiatal hernia repaired on 08/01/2019 and she called her surgeon's office prior to arrival here who advised her to come to the emergency department "for a CT scan to make sure everything is intact" according to nursing notes. Patient states that she has not wanted to eat the last day either. TRAVEL OUTSIDE OF THE [place] IN LAST 30 DAYS: No - Related Data Allergies/Adverse Reactions: codeine [Codeine] Allergy (Verified 02/24/17 11:53) ibuprofen [From Motrin] Allergy (Verified 02/24/17 11:53) Past Medical History - General Information source: Patient - Social History Smoking Status: Never Smoker Cigarette use (# per day): No Frequency of alcohol use: Occasional Drug Abuse: None Family History: None Patient has suicidal ideation: No Patient has homicidal ideation: No Neurological Medical History: Reports: Hx Migraine Musculoskeletal Medical History: Reports Hx Arthritis - low back Psychiatric Medical History: Reports: Hx Depression - hx of overdose Past Surgical History: Reports: Hx Orthopedic Surgery, Hx Tubal Ligation - Immunizations Hx Diphtheria, Pertussis, Tetanus Vaccination: Yes Review of Systems - Review of Systems Constitutional: No symptoms reported EENT: No symptoms reported Cardiovascular: No symptoms reported Respiratory: No symptoms reported Gastrointestinal: See HPI, Abdominal pain, Nausea, Vomiting Genitourinary: No symptoms reported Female Genitourinary: No symptoms reported Musculoskeletal: No symptoms reported Skin: No symptoms reported Hematologic/Lymphatic: No symptoms reported Neurological/Psychological: No symptoms reported -: Yes All other systems reviewed and negative Physical Exam - Vital signs Vitals: Temp Pulse Resp BP Pulse Ox 97.6 F 81 18 139/77 H 100 08/21/19 07:56 08/21/19 07:56 08/21/19 07:56 08/21/19 07:56 08/21/19 07:56 - Notes Notes: Physical Exam: General: Alert, appears well. HEENT: Normocephalic. Atraumatic. PERRL. Extraocular movements intact. Oropharynx clear. Neck: Supple. Non-tender. Respiratory: No respiratory distress. Clear and equal breath sounds bilaterally. Cardiovascular: Regular rate and rhythm. Abdominal: Obese. Epigastric tenderness with palpation. No distension. Hypoactive Bowel Sounds. Back: No gross abnormalities. Extremities: Moves all four extremities. Upper extremities: Normal inspection. Normal ROM. Lower extremities: Normal inspection. No edema. Normal ROM. Neurological: Normal cognition. AAOx4. Normal speech. Psychological: Normal affect. Normal Mood. Skin: Warm. Dry. Normal color. Course - Re-evaluation Re-evalutation: 08/21/19 15:05 Patient's first urinalysis was a clean-catch, and was heavily contaminated with WBCs and epithelial cells. She was given a liter of normal saline and a catheterized urine was obtained which does not show any signs of infection. - Vital Signs Vital signs: Temp Pulse Resp BP Pulse Ox 97.6 F 81 18 139/77 H 100 08/21/19 07:56 08/21/19 07:56 08/21/19 07:56 08/21/19 07:56 08/21/19 07:56 - Laboratory Result Diagrams: 08/21/19 08:49 08/21/19 08:49 Laboratory results interpreted by me: 08/21/19 08/21/19 08/21/19 08:49 08:49 12:44 RDW 14.7 H AST 47 H ALT 69 H Urine Ketones TRACE H Urine Blood SMALL H Ur Leukocyte Esterase LARGE H 08/21/19 14:28 RDW AST ALT Urine Ketones 20 H Urine Blood SMALL H Ur Leukocyte Esterase - Diagnostic Test Radiology reviewed: Image reviewed, Reports reviewed - Oral and IV contrasted CT scan of the abdomen and pelvis shows postsurgical changes in epigastric region. Focal fluid collection right of midline at the level of the diaphragm measuring 3.3 x 2.2 cm most likely represents postoperative seroma. There appear to be some edema in the wall of the distal esophagus and at the GE junction. - Consults Dr. Yves English Time consulted: 12:24 Consulted provider: follow-up in office - He feels these are probably all postsurgical changes and not unexpected. He requests that treat the patient w ith nausea medication, and have her call the office if not improving over the next 2 to 3 days. Discharge - Discharge Clinical Impression: Nausea Postoperative seroma Qualifiers: Surgical complication system/body Area: digestive system Procedure type: dig estive system Qualified Code(s): K91.872 - Postprocedural seroma of a digestive system organ or structure following a digestive system procedure Condition: Stable Disposition: HOME, SELF-CARE Additional Instructions: Your CT scan shows a fluid collection adjacent to the esophagus at the diaphragm. This is most likely a seroma which is not unusual after the type of surgery you had. Your surgeon or wants you to try a nausea medication to see if it helps control your symptoms. You should take the medication as prescribed, and drink plenty of cool clear liquids over the next few days. Call the office if you do not improve over the next 2 to 3 days. RETURN TO THE EMERGENCY ROOM IF ANY NEW OR WORSENING SYMPTOMS. Prescriptions: Metoclopramide HCl [Reglan 10 mg Tablet] 10 mg PO ASDIR PRN #15 tablet PRN Reason: Forms: Return to Work Referrals: ABEL WHITESIDE MD [Primary Care Provider] - Follow up as needed I personally performed the services described in the documentation, reviewed and edited the documentation which was dictated to the scribe in my presence, and it accurately records my words and actions.
[2019-08-21 09:20] LABS: PLATELET COUNT 257 10^3/uL (150-450)
[2019-08-21 09:27] LABS: ALBUMIN 4.7 g/dL (3.5-5.0); ALKALINE PHOSPHATASE 77 U/L (38-126); ANION GAP 10 (5-19); ASPARTATE AMINO TRANSFERASE 47 U/L (14-36); BILIRUBIN,DIRECT 0.4 mg/dL (0.0-0.4); BILIRUBIN,TOTAL 0.7 mg/dL (0.2-1.3); BLOOD UREA NITROGEN 17 mg/dL (7-20); CALCIUM 9.8 mg/dL (8.4-10.2); CARBON DIOXIDE 24 mmol/L (22-30); CHLORIDE 105 mmol/L (98-107); GLUCOSE 95 mg/dL (75-110); POTASSIUM 4.1 mmol/L (3.6-5.0)
--- NOTE | 2019-08-21 12:02 | RADIOLOGY REPORT (SQ) ---
EXAM DESCRIPTION: CT ABD/PELVIS WITH IV ORAL COMPLETED DATE/TIME: 08/21/2019 11:43 am REASON FOR STUDY: N,V epigastric pain,recent diaphragm hernia repair COMPARISON: 07/25/2019 TECHNIQUE: CT scan of the abdomen and pelvis performed using helical scanning technique with dynamic intravenous contrast injection. No oral contrast. Images reviewed with lung, soft tissue, and bone windows. Reconstructed coronal and sagittal MPR images reviewed. Delayed images for evaluation of the urinary system also acquired. All images stored on PACS. All CT scanners at this facility use dose modulation, iterative reconstruction, and/or weight based d osing when appropriate to reduce radiation dose to as low as reasonably achievable (ALARA). [facility]: Dose Right [facility]: CareDose [facility]: Dose Right [facility]: Teradose 4D [facility]: WorldRemit CONTRAST TYPE AND DOSE: contrast/concentration: Isovue 350.00 mg/ml; Total Contrast Delivered: 82.0 ml; Total Saline Delivered: 36.1 ml RENAL FUNCTION: BUN 17, creatinine 0.93 RADIATION DOSE: CT Rad equipment meets quality standard of care and radiation dose reduction techniq ues were employed. CTDIvol: 8.4 - 11.9 mGy. DLP: 1168 mGy-cm.. LIMITATIONS: None. FINDINGS: LOWER CHEST: Minimal pleural thickening and basilar atelectasis. LIVER: Decreased attenuation throughout the liver consistent with fatty infiltration. SPLEEN: Normal size. No focal lesions. PANCREAS: No masses. No significant calcifications. No adjacent inflammation or peripancreatic fluid collections. Pancreatic duct not dilated. GALLBLADDER: No identified stones by CT criteria. No inflammatory changes to suggest cholecystitis. ADRENAL GLANDS: No significant masses or asymmetry. RIGHT KIDNEY AND URETER: No solid masses. No significant calcifications. No hydronephrosis or hyd roureter. LEFT KIDNEY AND URETER: No solid masses. No significant calcifications. No hydronephrosis or hydr oureter. AORTA AND VESSELS: No aneurysm. No dissection. Renal arteries, SMA, celiac without stenosis. RETROPERITONEUM: No retroperitoneal adenopathy, hemorrhage or masses. BOWEL AND PERITONEAL CAVITY: Postsurgical changes in the epigastric region. There is a focal fluid c ollection right of midline at the level of the diaphragm. This measures 3.3 x 2.2 cm. Hounsfield un its measure 1. This most likely represents postoperative seroma. It lies adjacent to the distal eso phagus and extends inferiorly to G just below the level of the diaphragm. It extends 5.3 cm cranial caudally there appears to be some edema in the wall of the distal esophagus and at the GE junction. APPENDIX: Normal. PELVIS: No mass. No free fluid. Normal bladder. ABDOMINAL WALL: No masses. No hernias. BONES: No significant or acute findings. OTHER: No other significant finding. IMPRESSION: Postsurgical changes at the level of the GE junction consistent with the patient's clini patty history. There is a 3.3 x 2.2 x 5.3 cm fluid collection just right of midline. There appears to be wall edema in the distal esophagus and at the GE junction. TECHNICAL DOCUMENTATION: JOB ID: [id number] Quality ID # [id number]: Final reports with documentation of one or more dose reduction techniques (e.g., Au tomated exposure control, adjustment of the mA and/or kV according to patient size, use of iterative reconstruction technique) 2010 [employer]- All Rights Reserved Reading location - IP/workstation name: [email or web address]
[2019-08-21] MEDS ORDERED: METOCLOPRAMIDE HCL INJ/PF 10 MG/2 ML SDV IV ONE (12:17)
[2019-08-21 13:30] LABS: APPEARANCE,URINE CLOUDY; BILIRUBIN,URINE NEGATIVE (NEGATIVE); COLOR,URINE YELLOW; GLUCOSE, URINE NEGATIVE (NEGATIVE); KETONES,URINE TRACE mg/dL (NEGATIVE); LEUKOCYTE ESTERASE,URINE LARGE (NEGATIVE); NITRITE,URINE NEGATIVE (NEGATIVE); PROTEIN,URINE NEGATIVE (NEGATIVE); UROBILINOGEN,URINE NEGATIVE mg/dL (<2.0)
[2019-08-21] MEDS ORDERED: NORMAL SALINE 1000 ML 1,000 ML IV ONE (13:35)
[2019-08-21 14:59] LABS: APPEARANCE,URINE CLEAR; BILIRUBIN,URINE NEGATIVE (NEGATIVE); COLOR,URINE YELLOW; GLUCOSE, URINE NEGATIVE (NEGATIVE); KETONES,URINE 20 mg/dL (NEGATIVE); LEUKOCYTE ESTERASE,URINE NEGATIVE (NEGATIVE); NITRITE,URINE NEGATIVE (NEGATIVE); PROTEIN,URINE NEGATIVE (NEGATIVE); UROBILINOGEN,URINE NEGATIVE mg/dL (<2.0)
[2019-08-21 15:10] LABS: URINE SPECIFIC GRAVITY > 1.060
[2019-08-21 15:30] VITALS: BP 146/87
== END 2019-08-21 15:28 | disposition home or self-care (01) ==
LOC: ER 07:52
DX: K91.872 Postprocedural seroma of a digestive system organ or structure following a digestive system procedure (principal); Y83.8 Other surgical procedures as the cause of abnormal reaction of the patient, or of later complication, without mention of misadventure at the time of the procedure; R11.2 Nausea with vomiting, unspecified; R10.816 Epigastric abdominal tenderness; Z88.6 Allergy status to analgesic agent; Z88.5 Allergy status to narcotic agent
CPT/HCPCS: 99284; 96361; 96374; 36415; 83690; 85025; 80053; 81001; 74177; J2765; J7030

== ENCOUNTER → 2019-09-09 | Outpatient (CLI) | payer OTHER ==
--- NOTE | 2019-09-09 10:57 | RADIOLOGY REPORT (SQ) ---
EXAM DESCRIPTION: UGI W/ SINGLE CONTRAST IMAGES COMPLETED DATE/TIME: 09/09/2019 9:06 am REASON FOR STUDY: R10.13 EPIGASTRIC PAIN R10.13 EPIGASTRIC PAIN COMPARISON: None. TECHNIQUE: Under fluoroscopic guidance, patient ingested water soluble contrast. Fluoroscopic spot i mages and routine radiographic images acquired and stored on PACS. LIMITATIONS: None. FLUOROSCOPY TIME: 2.4 minutes of fluoroscopy was used. 15 images saved to PACS. FINDINGS: NEUROMUSCULAR COORDINATION OF SWALLOW: Normal. No aspiration. ESOPHAGEAL MOTILITY: Normal peristalsis. Mild tertiary contractions in the distal esophagus. ESOPHAGEAL MUCOSA: Normal mucosa without masses or ulceration. GASTRO-ESOPHAGEAL JUNCTION: Postoperative changes with GE junction from hiatal hernia repair. No ext ravasation or leak of contrast is seen. No hiatal hernia or reflux. There is narrowing of the dista l esophagus as it enters the stomach. Limited imaging of the stomach show no ulcerations or masses. NON-GI TRACT STRUCTURES: No significant finding. OTHER: Fluid collection seen on previous CT abdomen pelvis does not appear did communicate with the e sophagus. No mass effect or extrinsic compression is identified. IMPRESSION: POSTOPERATIVE CHANGES SEEN IN THE DISTAL ESOPHAGUS AND STOMACH WITHOUT EVIDENCE OF EXTRA VASATION OR LEAK CONTRAST. LUMINAL NARROWING OF THE DISTAL ESOPHAGUS IT ENTERS STOMACH RELATED TO HIATAL HERNIA REPAIR IS NONOBSTRUCTIVE TO THE LIQUID CONTRAST. COMMENT: Quality ID [id number]: Final reports for procedures using fluoroscopy that document radiation exp osure indices, or exposure time and number of fluorographic images (if radiation exposure indices are not available) TECHNICAL DOCUMENTATION: JOB ID: [id number] 2010 [employer]- All Rights Reserved Reading location - IP/workstation name: [email or web address] [id number]
== END ==
LOC: RAD 08:13
PROVIDERS: ATTEND Surgery
DX: R10.13 Epigastric pain (principal)
CPT/HCPCS: 74240

== ENCOUNTER 2020-02-20 06:29 | Emergency (ER) | payer OTHER ==
[2020-02-20 09:33] LABS: ABSOLUTE BASOPHILS # (AUTO) 0.1 10^3/uL (0.0-0.2); ABSOLUTE EOSINOPHILS # (AUTO) 0.2 10^3/uL (0.0-0.6); ABSOLUTE LYMPHOCYTES (AUTO) 1.9 10^3/uL (0.5-4.7); ABSOLUTE MONOCYTES (AUTO) 0.8 10^3/uL (0.1-1.4); ABSOLUTE NEUT (AUTO) 5.1 10^3/uL (1.7-8.2); BASOPHILS % (AUTO) 0.9 % (0-2); EOSINOPHILS % (AUTO) 2.1 % (0-6); HEMATOCRIT 41.1 % (36.0-47.0); HEMOGLOBIN 13.9 g/dL (12.0-15.5); LYMPHOCYTES % (AUTO) 23.6 % (13-45); MEAN CORPUSCULAR HGB CONC 33.9 g/dL (32.0-36.0); MEAN CORPUSCULAR VOLUME 94 fl (80-97); MONOCYTES % (AUTO) 10.3 % (3-13); PLATELET COUNT 265 10^3/uL (150-450); RED BLOOD COUNT 4.35 10^6/uL (3.72-5.28); SEGMENTED NEUTROPHILS % (AUTO) 63.1 % (42-78); TOTAL CELLS COUNTED % (AUTO) 100 %; WHITE BLOOD COUNT 8.1 10^3/uL (4.0-10.5)
--- NOTE | 2020-02-20 10:01 | ER Document Report ---
ED General - General Chief Complaint: Abdominal Pain Stated Complaint: FLANK PAIN Time Seen by Provider: 02/20/20 08:41 Primary Care Provider: ABEL WHITESIED MD [Primary Care Provider] - Follow up as needed TRAVEL OUTSIDE OF THE [place] IN LAST 30 DAYS: No - HPI Notes: Chief complaint: Intermittent bilateral lower back and flank discomfort History of present illness: 59-year-old female with history of degenerative arthritic changes of the dorsal lumbar spine previously demonstrated on MRI and chronic recurrent discomfort in lower back bilaterally with radiation into flank area seen now for perceived exacerbation of this problem. She says she takes a muscle relaxer intermittently. She apparently saw a supplier specialist at one time and was referred for physical therapy but did not follow through with this. 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 She says her symptoms are much worse on days when she works beyond her usual 8-hour shift working at times up to 10 hours. She denies any urinary symptoms. No fever. No vomiting. No abdominal pain. Patient reports that her discomfort is aggravated by twisting and turning and is often most bothersome when she is driving her car. She describes this as an intermittent "catch" in the flank area bilaterally. - Related Data Allergies/Adverse Reactions: codeine [Codeine] Allergy (Verified 02/24/17 11:53) ibuprofen [From Motrin] Allergy (Verified 02/24/17 11:53) Home Medications: zanaflex, tessalon perles, loratadine Past Medical History - General Information source: Patient, [facility] Records - Social History Smoking Status: Never Smoker Frequency of alcohol use: None Drug Abuse: None Lives with: Family Family History: None - Past Medical History Cardiac Medical History: Denies: Hx Heart Attack, Hx Hypertension Pulmonary Medical History: Denies: Hx Asthma Neurological Medical History: Reports: Hx Migraine. Denies: Hx Cerebrovascular Accident, Hx Seizures Endocrine Medical History: Reports: Hx Hypothyroidism Renal/ Medical History: Denies: Hx Kidney Stones, Hx Ovarian Cysts, Hx Peritoneal Dialysis, Hx Pelvic Inflammatory Disease GI Medical History: Denies: Hx Hepatitis, Hx Hiatal Hernia, Hx Ulcer Musculoskeletal Medical History: Reports Hx Arthritis - low back Psychiatric Medical History: Reports: Hx Depression - hx of overdose Infectious Medical History: Denies: Hx Hepatitis Past Surgical History: Reports: Hx Orthopedic Surgery, Hx Tubal Ligation. Denies: Hx Mastectomy, Hx Open Heart Surgery, Hx Pacemaker - Immunizations Hx Diphtheria, Pertussis, Tetanus Vaccination: Yes Review of Systems - Review of Systems Notes: Constitutional: Negative for fever. HENT: Negative for sore throat. Eyes: Negative for visual changes. Cardiovascular: Negative for chest pain. Respiratory: Negative for shortness of breath. Gastrointestinal: Negative for abdominal pain, vomiting or diarrhea. Genitourinary: Negative for dysuria. Musculoskeletal: As per HPI. Skin: Negative for rash. Neurological: Negative for headaches, weakness or numbness. 10 point ROS negative except as marked above and in HPI. Physical Exam - Vital signs Vitals: Temp Pulse Resp BP Pulse Ox 98.3 F 69 18 144/83 H 100 02/20/20 06:45 02/20/20 06:45 02/20/20 06:45 02/20/20 06:45 02/20/20 06:45 - Notes Notes: GENERAL: Middle-age female appearing in no acute distress. SKIN: Good turgor no rashes. HEAD: Normocephalic atraumatic. EYES: PERRLA. EOMI. Conjunctivae and sclerae clear. EARS: CANALS AND TMS CLEAR. NOSE: CLEAR. MOUTH: Moist mucosa. Good dentition. No stridor or edema. No drooling. NECK: Supple. No masses or thyromegaly. No adenopathy. Carotids 2+ without bruits. No JVD. BACK: Patient has some reproducible tenderness on palpation beneath the rib cage area bilaterally extending into both flanks. CHEST: Respirations unlabored. Breath sounds clear and symmetrical. HEART: Regular rhythm. No murmur gallop or rub. ABDOMEN: Soft nontender without masses, organomegaly or rebound. Bowel sounds normally active. No bruits. GENITALIA: Deferred. EXTREMITIES: No edema. No calf tenderness. Cap refill less than 1.5 seconds. Dorsalis pedis and posterior tibial pulses 3+ and symmetrical. NEUROLOGICAL: GCS 15. Alert and oriented x3. Normal gait. Fluent speech. Cranial nerves II through XII intact. Sensorimotor and cerebellar normal. Normal tone. PSYCHIATRIC: Appropriate affect. Course - Re-evaluation Re-evalutation: 02/20/20 12:38 Urinalysis suggest presence of UTI. CBC and chemistry profile unremarkable. I think she is actually having aggravation of her chronic musculoskeletal symptoms due to urinary tract infection. Findings, clinical impression and plan of treatment have been discussed with patient/family. Understanding of current findings and recommendations has been acknowledged by them and there is agreement regarding disposition and follow-up. - Vital Signs Vital signs: Temp Pulse Resp BP Pulse Ox 98.3 F 69 18 144/83 H 100 02/20/20 06:45 02/20/20 06:45 02/20/20 06:45 02/20/20 06:45 02/20/20 06:45 - Laboratory Result Diagrams: 02/20/20 09:12 02/20/20 09:12 Laboratory results interpreted by me: 02/20/20 02/20/20 09:12 10:06 AST 38 H ALT 63 H Leukocyte Esterase Rfl LARGE H Discharge - Discharge Clinical Impression: Urinary tract infection Qualifiers: Urinary tract infection type: site unspecified Hematuria presence: without hematuria Qualified Code(s): N39.0 - Urinary tract infection, site not specified Osteoarthritis of spine Qualifiers: Spinal region: lumbar Spinal osteoarthritis complication: unspecified spinal osteoarthritis Qualified Code(s): M47.816 - Spondylosis without myelopathy or radiculopathy, lumbar region Condition: Stable Disposition: HOME, SELF-CARE Additional Instructions: Return here as needed for new or worsening symptoms. Follow-up with your primary care physician and/or supplier specialist. Prescriptions: Lidocaine [Lidoderm 5% (700 mg) Transdermal Patch] 1 patch TP DAILY #30 adh..patch Nitrofurantoin Monohyd/M-Cryst [Macrobid 100 mg Capsule] 100 mg PO BID 5 Days #10 cap Forms: Return to Work Referrals: ABEL WHITESIDE MD [Primary Care Provider] - Follow up as needed
[2020-02-20 10:05] LABS: ALBUMIN 4.5 g/dL (3.5-5.0); ALKALINE PHOSPHATASE 97 U/L (38-126); ANION GAP 8 (5-19); ASPARTATE AMINO TRANSFERASE 38 U/L (14-36); BILIRUBIN,DIRECT 0.3 mg/dL (0.0-0.4); BILIRUBIN,TOTAL 0.7 mg/dL (0.2-1.3); BLOOD UREA NITROGEN 14 mg/dL (7-20); CALCIUM 9.4 mg/dL (8.4-10.2); CARBON DIOXIDE 28 mmol/L (22-30); CHLORIDE 105 mmol/L (98-107); GLUCOSE 89 mg/dL (75-110); POTASSIUM 4.4 mmol/L (3.6-5.0); TOTAL PROTEIN 7.2 g/dL (6.3-8.2)
[2020-02-20 10:33] LABS: APPEARANCE,URINE SLIGHTLY-CLOUDY; BILIRUBIN,URINE NEGATIVE (NEGATIVE); COLOR,URINE YELLOW; GLUCOSE, URINE NEGATIVE (NEGATIVE); KETONES,URINE NEGATIVE (NEGATIVE); PROTEIN,URINE NEGATIVE (NEGATIVE); URINE SPECIFIC GRAVITY 1.021; UROBILINOGEN,URINE NEGATIVE mg/dL (<2.0)
[2020-02-20 13:17] VITALS: BP 136/72
== END 2020-02-20 13:17 | disposition home or self-care (01) ==
LOC: ER 06:29
DX: N39.0 Urinary tract infection, site not specified (principal); M47.816 Spondylosis without myelopathy or radiculopathy, lumbar region; R10.9 Unspecified abdominal pain
CPT/HCPCS: 36415; 80053; 81001; 83690; 85025; 87086; 87088; 99283